=== PATIENT | female | born 1965 | race American Indian/Alaskan Native ===

== ENCOUNTER 2024-12-11 19:49 | Emergency (ER) | payer BC, OTHER | END 2024-12-11 20:47 | disposition home or self-care (01) | LOC: DL.ED 19:49 | DX: G89.18 Other acute postprocedural pain (principal); M25.561 Pain in right knee; Z96.651 Presence of right artificial knee joint; Z79.82 Long term (current) use of aspirin; Z79.899 Other long term (current) drug therapy | CPT/HCPCS: 93971; 99283 ==